=== PATIENT | female | born 1965 | race Caucasian/White ===

== ENCOUNTER → 2019-06-15 | Outpatient (CLI) | payer SELFPAY ==
[~2019-06-15] MED LIST: ISOVUE-370 76% 100ML VIAL (Q9967) As Ordered ONE
--- NOTE | 2019-06-15 15:31 | REP ---
CT of the chest with IV contrast, CT angiography for a atheroma embolism: Axial images are acquired helical scanning and a reformatted sagittal and coronal projections. Thoracic aorta: The ascending aorta is mildly dilated measuring up to 3.3 cm in diameter. The aortic isthmus is unremarkable except for occasional calcified atheroma. The descending thoracic aorta is unremarkable. There is no thoracic aortic dissection. There are atheromatous plaques without significant stenosis at the origins of the innominate artery and left common carotid artery. There is a large calcified atheromatous plaque at the bifurcation of the distal innominate artery extending into the right subclavian artery with approximately 50% stenosis. There is luminal narrowing of the left subclavian artery is a passes beneath the left clavicle. The study is performed with the the patient arms over head. There are no emboli in the pulmonary trunk or central pulmonary arteries. There are no emboli in the pulmonary lobe or segment branches. There are no infiltrates. There are no pleural effusions. There are no lung nodules or masses. There is no mediastinal, hilar or axillary l lymphadenopathy. There is minimal subcutaneous and mediastinal body fat. The cardiac size is normal. There is no pericardial effusion. Impression: Mild dilatation of the ascending aorta measuring up to 3.3 centimeters in diameter. Atheromatous plaques without significant stenosis are identified at the origins of the innominate artery and left common carotid artery. There is approximately 50% stenosis at the distal innominate artery extending into the right subclavian artery from the calcific plaque. There are no pulmonary emboli. No adenopathy, mass, nodule, infiltrate or pleural effusion. There is a small calcified granuloma in the superior segment of the left lower lobe. Electronically Signed by Daniel Streeter MD 06/15/2019 03:23 P
--- NOTE | 2019-06-15 15:55 | REP ---
CT of the abdomen, pelvis and lower extremities for atheroma embolism: The studies performed with intravenous contrast. There is occasional atheromatous plaque in the abdominal aorta distally. There is no aortic aneurysm or periaortic hematoma. There is a small calcified plaque near the origin of the SMA without significant stenosis. There is no stenosis of the celiac artery. There is no stenosis on the right or left renal arteries. There is nonocclusive calcified atheroma in the right common iliac artery. There is circumferential calcific plaque in the left common iliac artery. 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 The distal left common femoral artery is reconstituted. There is no occlusion or stenosis of the right or left superficial femoral arteries or profunda femoral arteries. There is no stenosis or occlusion of the popliteal arteries or of the proximal peroneal, posterior tibial or anterior tibial arteries. There is flow across the ankles bilaterally through the posterior tibial arteries. There is flow to just above the ankles bilaterally through the anterior tibial arteries. There is flow to just above the ankles bilaterally through the peroneal arteries. 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 There is reconstitution of the left superficial femoral artery and profunda femoral artery. No significant stenosis is seen in either right or left lower extremities. Flow can be visualized across the ankle in the posterior tibial arteries bilaterally. Flow can be visualized to the ankles bilaterally in the anterior tibial and peroneal arteries . CT of the abdomen and pelvis: There are no comparisons. The hepatic parenchyma, gallbladder, pancreas and spleen are normal size and unremarkable. The adrenals and kidneys are unremarkable. The abdominal aorta is unremarkable. Pelvis: The uterus and adnexa are unremarkable. The bowel and mesentery are unremarkable. There is no ascites. Impression: Essentially negative CT of the abdomen and pelvis. Electronically Signed by Daniel Streeter MD 06/15/2019 03:47 P
== END ==
LOC: M RAD 12:35
PROVIDERS: ATTEND Surgery
DX: I75.023 Atheroembolism of bilateral lower extremities (principal)
CPT/HCPCS: 71275; 75635; Q9967

== ENCOUNTER → 2019-12-19 | Outpatient (CLI) | payer OTHER ==
--- NOTE | 2019-12-19 11:29 | REP ---
REASON: Evidence of vascular disease. COMPARISON: None. There is echogenic material seen along the carotid arterial camarena, some of which casts an acoustic shadow consistent with calcific deposition. RIGHT LEFT CCA Systolic 104.0 cm/s 129.0 cm/s CCA Diastolic 31.1 cm/s 44.7 cm/s ICA Systolic 83.3 cm/s 110.0 cm/s ICA Diastolic 35.3 cm/s 30.7 cm/s ICA/CCA Ratio 0.8 0.9 Analysis of the spectral waveforms shows mild bilateral internal carotid arterial spectral broadening. There is antegrade flow seen in the left vertebral artery, however, there is retrograde flow seen in the right vertebral artery. IMPRESSION: There is calcific and noncalcific plaque formation seen in the carotid arteries, however, according to the NASCET consensus criteria there is less than 50% stenosis of the internal carotid artery bilaterally. 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 Electronically Signed by Kody Altman DO 12/19/2019 01:37 P
== END ==
LOC: M RAD 10:32
PROVIDERS: ATTEND Internal Medicine Cardiovascular Disease
DX: R09.89 Other specified symptoms and signs involving the circulatory and respiratory systems (principal)

== ENCOUNTER → 2025-01-08 | Outpatient (CLI) | payer MEDICARE | LOC: M RAD 06:28 | PROVIDERS: ATTEND Surgery | DX: I73.9 Peripheral vascular disease, unspecified (principal) ==

== ENCOUNTER → 2025-04-23 | Outpatient (CLI) | payer MEDICARE | LOC: M RAD 13:27 | PROVIDERS: ATTEND Physician Assistant | DX: I65.23 Occlusion and stenosis of bilateral carotid arteries (principal) ==